=== PATIENT | male | born 1980 | race Caucasian/White ===

== ENCOUNTER 2017-02-28 09:56 | Emergency (ER) | payer SELFPAY ==
[2017-02-28 10:23] LABS: Basophils % (Auto) 0.7 % (0.0-1.8); Eosinophils % (Auto) 2.7 % (0.0-4.3); Hematocrit 44.3 % (35.5-45.6); Hemoglobin 14.9 gm/dl (11.8-15.2); Mean Corpuscular HGB Conc 34 % (32-34); Mean Corpuscular Hemoglobin 31 pg (28-32); Mean Corpuscular Volume 93 fl (84-94); Platelet Count 267 K/mm3 (140-440); Red Blood Count 4.76 M/mm3 (3.65-5.03); Red Cell Distribution Width 12.8 % (13.2-15.2); White Blood Count 7.8 K/mm3 (4.5-11.0)
[2017-02-28 10:35] LABS: Anion Gap 17 mmol/L; BUN/Creatinine Ratio 11.25; Blood Urea Nitrogen 9 mg/dL (9-20); Calcium 9.7 mg/dL (8.4-10.2); Carbon Dioxide 24 mmol/L (22-30); Chloride 104.8 mmol/L (98-107); Glucose 85 mg/dL (75-100); Potassium 4.1 mmol/L (3.6-5.0); Sodium 142 mmol/L (137-145)
[2017-02-28 12:30] LABS: Urine Drugs of Abuse Note Disclamer
[2017-02-28 12:56] LABS: Bilirubin,Urine NEG (Negative); Blood,Urine NEG (Negative); Ketones,Urine NEG (Negative); Leukocyte Esterase,Urine NEG (Negative); Mucus,Urine FEW /HPF; Nitrite,Urine NEG (Negative); Protein,Urine <15 mg/dL mg/dL (Negative); Urobilinogen,Urine < 2.0 mg/dL (<2.0)
[2017-02-28] MEDS ORDERED: HALDOL IM ONE (13:35)
[2017-02-28] MEDS ORDERED: ATIVAN IM ONE (13:35)
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
[2017-02-28] MEDS ORDERED: BENADRYL IM ONE (13:37)
[2017-02-28] MEDS ORDERED: HALDOL ONE (13:37)
[2017-02-28] MEDS ORDERED: ATIVAN ONE (13:38)
[2017-02-28] MEDS ORDERED: BENADRYL ONE (13:38)
[2017-02-28] MEDS ORDERED: TYLENOL PO PRN (15:47)
[2017-02-28] MEDS ORDERED: ALUM-MAG HYDROX-SIMETH 200-200-20MG/5ML PO PRN (15:47)
[2017-02-28] MEDS ORDERED: ATIVAN IM PRN (15:48)
[2017-03-01 14:17] VITALS: BP 149/91
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
== END 2017-03-01 17:14 ==
LOC: ED 09:56
DX: F41.9 Anxiety disorder, unspecified (principal); R46.89 Other symptoms and signs involving appearance and behavior; F43.10 Post-traumatic stress disorder, unspecified
CPT/HCPCS: 36415; 80048; 80307; 81001; 85025; 96372; 99285; G0480; J1200; J1630; J2060; 80320

== ENCOUNTER 2020-03-04 10:32 | Emergency (ER) | payer OTHER ==
[2020-03-04 11:20] VITALS: BP 117/84
--- NOTE | 2020-03-04 13:22 | Emergency Department Report ---
ED General Adult HPI - General Chief complaint: Psych Stated complaint: ANXIETY PUI?: No Time Seen by Provider: 03/04/20 11:38 Source: patient, EMS ( EMS documentation not available at time of chart dictation ), RN notes reviewed, old records reviewed Mode of arrival: Stretcher Limitations: No Limitations - History of Present Illness Initial comments: The patient was evaluated in the emergency department for symptoms described in the history of present illness. He/she was evaluated in the context of the global COVID-19 pandemic, which necessitated consideration that the patient might be at risk for infection with the virus that causes COVID-19. Institutional protocols and algorithms that pertain to the evaluation of pa tients at risk for COVID-19 are in a state of rapid change based on information released by regulatory bodies including the CDC and federal and state organizations. These policies and algorithms were followed during the patient's care in the emergency department. Please note that these policies, procedures and recommendations changed on a rapid basis. Patient is a 39-year-old gentleman, who is not known to myself previously, presenting to the emergency room today with a complaint of painless anxiety. Patient reports that his is , cannot drive and does not drive, and he is feeling very stressed out. The patient denies headache, neck pain, chest pain, abdominal pain, shortness of breath, homicidality, suicidality, cough, vomiting, urinary symptoms, and intentional overdose. The patient states that he is simply "stressed", and that sometimes the stress can seem somewhat overwhelming. -: Gradual Severity scale (0 -10): 0 Consistency: constant Improves with: none Worsens with: other (Symptoms worsen with patient thinks about numerous psychosocial stressors) - Related Data Home Medications Medication Instructions Recorded Confirmed Last Taken No Known Home Medications [No 02/28/17 02/28/17 Unknown Reported Home Medications] Allergies Allergy/AdvReac Type Severity Reaction Status Date / Time No Known Allergies Allergy Verified 02/28/17 14:10 ED Review of Systems ROS: Stated complaint: ANXIETY Other details as noted in HPI Comment: All other systems reviewed and negative Psychiatric: anxiety. denies: auditory hallucinations, visual hallucinations, homicidal thoughts, suicidal thoughts ED Past Medical Hx - Past Medical History Additional medical history: HYPOTHYROID - Social History Smoking Status: Never Smoker Substance Use Type: None - Medications Home Medications: Home Medications Medication Instructions Recorded Confirmed Last Taken Type No Known Home Medications [No 02/28/17 02/28/17 Unknown History Reported Home Medications] ED Physical Exam - General Limitations: No Limitations General appearance: alert, in no apparent distress - Head Head exam: Present: atraumatic, normocephalic - Eye Eye exam: Present: normal appearance, PERRL, EOMI, other (Visual acuity intact to finger counting, color perception, reading at a close distance). Absent: nystagmus - ENT ENT exam: Present: normal exam, normal orophraynx, mucous membranes moist, normal external ear exam - Neck Neck exam: Present: normal inspection, full ROM. Absent: tenderness, meningismus - Respiratory Respiratory exam: Present: normal lung sounds bilaterally. Absent: respiratory distress, wheezes, rales, rhonchi, stridor, decreased breath sounds - Cardiovascular Cardiovascular Exam: Present: regular rate, normal rhythm, normal heart sounds. Absent: bradycardia, tachycardia, irregular rhythm, systolic murmur, diastolic murmur, rubs, gallop - GI/Abdominal GI/Abdominal exam: Present: soft, normal bowel sounds. Absent: distended, tenderness, guarding, rebound, rigid, pulsatile mass - Rectal Rectal exam: Present: deferred - Extremities Exam Extremities exam: Present: normal inspection, full ROM, other (2+ pulses noted in the bilateral upper and lower extremities. There is no palpable cord. negative Homans sign. Muscular compartments are soft. The pelvis is stable.). Absent: pedal edema, calf tenderness - Back Exam Back exam: Present: normal inspection, full ROM. Absent: tenderness, CVA tenderness (R), CVA tenderness (L), paraspinal tenderness, vertebral tenderness - Neurological Exam Neurological exam: Present: alert, oriented X3, normal gait, other (No facial droop. Tongue midline. Extraocular movements intact bilaterally. Facial sensation intact to light touch in V1, V2, V3 distribution bilaterally. 5 and a 5 strength in 4 extremities. Sensation intact to light touch in 4 extremities.). Absent: motor sensory deficit - Psychiatric Psychiatric exam: Absent: homicidal ideation, suicidal ideation - Skin Skin exam: Present: warm, dry, intact, normal color. Absent: rash ED Course Vital Signs 03/04/20 11:19 Temperature 98.1 F Pulse Rate 74 Respiratory 17 Rate Blood Pressure 117/84 [Left] O2 Sat by Pulse 99 Oximetry ED Medical Decision Making - Lab Data Vital Signs 03/04/20 11:19 Temperature 98.1 F Pulse Rate 74 Respiratory 17 Rate Blood Pressure 117/84 [Left] O2 Sat by Pulse 99 Oximetry - Medical Decision Making Differential diagnosis, including but not limited to: Anxiety, general medical exam Assessment and plan: 39-year-old gentleman, who is afebrile, with reassuring vital signs, clinically sober at this time, not homicidal, not suicidal, alert and oriented x3, exhibits decision-making capacity, with anxiety. He does not appear to have an emergent medical condition present. His physical exam is benign and unremarkable. The patient presents as calm and cooperative, and lucid. He does not meet criteria for 1013 hold or involuntary hold. Patient will be provided with outpatient resources. Return precautions are reviewed. Critical care attestation.: If time is entered above; I have spent that time in minutes in the direct care of this critically ill patient, excluding procedure time. ED Disposition Clinical Impression: General medical exam, History of anxiety Disposition: DC-01 TO HOME OR SELFCARE Is pt being admited?: No Does the pt Need Aspirin: No Condition: Stable Additional Instructions: Please follow-up with an outpatient primary care doctor, or therapist, or the outpatient resources that were provided to the patient. Please follow-up with medical doctor within the next 6 weeks for routine medical checkup and evaluation. Please return to the emergency room right away with new pain, worsening pain, migration of pain, projectile vomiting, change in mental status, confusion, inability to tolerate liquid feeds, homicidality, suicidality, or any new, worsened or different symptoms not present on the initial emergency room evaluation. Referrals: REUBEN CASTANEDA MD [Staff Physician] - 3-5 Days
== END 2020-03-04 14:00 | disposition home or self-care (01) ==
LOC: ED 10:32
DX: F41.9 Anxiety disorder, unspecified (principal); Z00.00 Encounter for general adult medical examination without abnormal findings; Z79.899 Other long term (current) drug therapy
CPT/HCPCS: 99283